=== PATIENT | male | born 1950 | race Caucasian/White ===

== ENCOUNTER 2021-02-23 15:01 | Inpatient (IN) | payer MEDICARE, BC ==
[~2021-02-23] VITALS: Ht 180.3 cm; Wt 96.0 kg
[~2021-02-23 15:01] MED LIST: ASPI-1053 PO; ATOR40TA PO; CARV3.12 PO; LOSA25TA96 PO; TICA90TA PO
[2021-02-23 15:58] LABS: BASOPHILS % (AUTO) 0.4 % (0-1); EOSINOPHILS # (AUTO) 0.1 X10'3 (0-0.9); EOSINOPHILS % (AUTO) 2.1 % (0-6); HEMATOCRIT 49.6 % (42.0-52.0); HEMOGLOBIN 16.5 g/dl (14.0-17.9); LYMPHOCYTES # (AUTO) 2.4 X10'3 (1.1-4.8); LYMPHOCYTES % (AUTO) 55.6 % (21-51); MEAN CORPUSCULAR HEMOGLOBIN 31.4 PG (27.0-31.0); MEAN CORPUSCULAR HGB CONC 33.3 g/dL (33.0-36.5); MEAN CORPUSCULAR VOLUME 94.3 FL (78-98); MEAN PLATELET VOLUME 9.1 FL (7.4-10.4); MONOCYTES # (AUTO) 0.6 X10'3 (0-0.9); NEUTROPHILS # (AUTO) 1.2 X10'3 (1.8-7.7); NEUTROPHILS % (AUTO) 28.9 % (42-75); PLATELET COUNT 177 X10'3 (140-440); RED BLOOD COUNT 5.26 X10'6 (4.70-6.10); RED CELL DISTRIBUTION WIDTH 14.1 % (11.5-14.5); WHITE BLOOD COUNT 4.3 X10'3 (4.5-11.0)
[2021-02-23 16:08] LABS: ALANINE AMINOTRANSFERASE 40 U/L (12-78); ALBUMIN 3.9 G/DL (3.4-5.0); ALBUMIN/GLOBULIN RATIO 1.1 (1.1-1.5); ALKALINE PHOSPHATASE 74 IU/L (46-116); ANION GAP 8 (8-16); ASPARTATE AMINO TRANSFERASE 31 U/L (10-37); BILIRUBIN,TOTAL 0.4 MG/DL (0.1-1.0); BLOOD UREA NITROGEN 13 MG/DL (7-18); BUN/CREATININE RATIO 11.9 (5.4-32.0); CALCIUM 9.1 MG/DL (8.5-10.1); CHLORIDE 104 MMOL/L (99-107); CREATININE 1.09 MG/DL (0.60-1.10); GLUCOSE 86 MG/DL (70-104); POTASSIUM 4.5 MMOL/L (3.5-5.1); SODIUM 140 MMOL/L (135-145); TOTAL CARBON DIOXIDE 27.8 MMOL/L (24-32); TOTAL PROTEIN 7.6 G/DL (6.4-8.2); eGFR 67 ML/MIN
[2021-02-23 18:27] LABS: PLATELET ESTIMATE NORMAL; TOTAL CELLS COUNTED 100
[2021-02-23 18:28] LABS: SMUDGE CELLS FEW
[2021-02-23] MEDS ORDERED: aspirin 81mg tab.chew PO ONE (19:10)
[2021-02-23] MEDS ORDERED: magnesium 2GM in 50ml NS 50 ML IV PRN (20:25)
[2021-02-23] MEDS ORDERED: PERFLUTREN PROTEIN-A MICROSPHR (Optison) 0.22 MG/ML 3ML VIAL IV PRN (20:25)
[2021-02-23] MEDS ORDERED: magnesium hydroxide 30ml (MOM) UD suspension PO PRN (20:25)
[2021-02-23] MEDS ORDERED: mag hydrox/Alum hydrox/simeth 30ml oral suspension PO PRN (20:25)
[2021-02-23] MEDS ORDERED: magnesium Cl slow-release 64mg tablet PO PRN (20:25)
[2021-02-23] MEDS ORDERED: potassium Cl 20 mEq SR tablet PO PRN ×2 (20:25)
[2021-02-23] MEDS ORDERED: magnesium 4gm in 100ml NS 100 ML IV PRN (20:25)
[2021-02-23] MEDS ORDERED: acetaminophen 325mg tablet PO PRN (20:25)
[2021-02-23] MEDS ORDERED: ondansetron/PF 4mg/2ml inj IV PRN (20:25)
[2021-02-23] MEDS ORDERED: normal saline 1000ml 1,000 ML IV SCH (20:25)
[2021-02-23] MEDS ORDERED: potassium CL 10mEq/100ml bag 100 ML IV PRN (20:25)
[2021-02-23] MEDS ORDERED: aminophylline 250mg/10ml inj. IV PRN (20:30)
[2021-02-23] MEDS ORDERED: regadenoson 0.4mg/5ml syringe IV ONE (20:30)
[2021-02-23] MEDS ORDERED: metoprolol tartrate 1mg/ml inj IV PRN (20:30)
[2021-02-23] MEDS ORDERED: nitroGLYCERIN 0.4mg SUBLingual tab SL PRN (20:30)
[2021-02-23] MEDS: heparin, porcine 5000 units/ml vial SQ SCH (22:28)
[2021-02-24 04:13] LABS: ALANINE AMINOTRANSFERASE 31 U/L (12-78); ALBUMIN 2.9 G/DL (3.4-5.0); ALBUMIN/GLOBULIN RATIO 0.9 (1.1-1.5); ALKALINE PHOSPHATASE 53 IU/L (46-116); ANION GAP 7 (8-16); ASPARTATE AMINO TRANSFERASE 26 U/L (10-37); BILIRUBIN,TOTAL 0.3 MG/DL (0.1-1.0); BLOOD UREA NITROGEN 14 MG/DL (7-18); BUN/CREATININE RATIO 16.1 (5.4-32.0); CALCIUM 7.1 MG/DL (8.5-10.1); CHLORIDE 111 MMOL/L (99-107); CREATININE 0.87 MG/DL (0.60-1.10); GLUCOSE 76 MG/DL (70-104); MAGNESIUM 1.7 MG/DL (1.5-2.4); POTASSIUM 3.5 MMOL/L (3.5-5.1); SODIUM 143 MMOL/L (135-145); TOTAL CARBON DIOXIDE 25.1 MMOL/L (24-32); TOTAL PROTEIN 6.1 G/DL (6.4-8.2); eGFR 87 ML/MIN
[2021-02-24] MEDS ORDERED: atorvastatin 20mg tablet PO SCH (08:00)
[2021-02-24] MEDS ORDERED: aspirin 81mg tab.chew PO SCH (08:00)
[2021-02-24] MEDS ORDERED: carVEDilol 3.125mg tablet PO SCH (08:00)
[2021-02-24] MEDS ORDERED: losartan 25mg tablet PO SCH (08:00)
[2021-02-24] MEDS ORDERED: K and/or MAG REPLACEMENT MC SCH (08:00)
[2021-02-24] MEDS ORDERED: docusate sod 100mg capsule PO SCH (08:00)
[2021-02-24] MEDS: heparin, porcine 5000 units/ml vial SQ SCH (08:15)
--- NOTE | 2021-02-24 08:39 | NUR ---
pt to nuc med for cardiac stress test on monitor with RN, charge nurse aware
[2021-02-24 08:49] LABS: BASOPHILS % (AUTO) 0.6 % (0-1); EOSINOPHILS # (AUTO) 0.1 X10'3 (0-0.9); EOSINOPHILS % (AUTO) 1.4 % (0-6); HEMATOCRIT 48.2 % (42.0-52.0); HEMOGLOBIN 16.3 g/dl (14.0-17.9); LYMPHOCYTES # (AUTO) 1.8 X10'3 (1.1-4.8); LYMPHOCYTES % (AUTO) 40.3 % (21-51); MEAN CORPUSCULAR HEMOGLOBIN 31.6 PG (27.0-31.0); MEAN CORPUSCULAR HGB CONC 33.7 g/dL (33.0-36.5); MEAN CORPUSCULAR VOLUME 93.6 FL (78-98); MEAN PLATELET VOLUME 8.8 FL (7.4-10.4); MONOCYTES # (AUTO) 0.6 X10'3 (0-0.9); MONOCYTES % (AUTO) 13.2 % (2-12); NEUTROPHILS % (AUTO) 44.5 % (42-75); PLATELET COUNT 158 X10'3 (140-440); RED BLOOD COUNT 5.16 X10'6 (4.70-6.10); WHITE BLOOD COUNT 4.6 X10'3 (4.5-11.0)
[2021-02-24 08:57] VITALS: BP 130/79
[2021-02-24 09:09] VITALS: BP 130/89
[2021-02-24 09:10] VITALS: BP 138/78
[2021-02-24 09:11] VITALS: BP 129/86
[2021-02-24 09:12] VITALS: BP 135/82
[2021-02-24 09:13] VITALS: BP 123/82
[2021-02-24 13:58] LABS: CHOL/HDL RATIO 3.5 (0.00-4.99); CHOLESTEROL 78 MG/DL (0-200); HDL CHOLESTEROL 22 MG/DL (35-60); LDL CHOLESTEROL 47 MG/DL (50-100); TRIGLYCERIDES 75 MG/DL (20-135)
== END 2021-02-24 16:53 | disposition home or self-care (01) | DRG 303 ==
LOC: ER 15:02 → ED HOLD 20:25
PROVIDERS: ADMIT Internal Medicine; ATTEND Internal Medicine
PROC: 4A02XM4 Measurement of Cardiac Total Activity, External Approach (ICD-10-PCS; principal; 2021-02-24)
PROC: 3E073KZ Introduction of Other Diagnostic Substance into Coronary Artery, Percutaneous Approach (ICD-10-PCS; 2021-02-24)
DX: I25.119 Atherosclerotic heart disease of native coronary artery with unspecified angina pectoris (principal); E78.5 Hyperlipidemia, unspecified; I10 Essential (primary) hypertension; E11.9 Type 2 diabetes mellitus without complications; M25.512 Pain in left shoulder; D72.821 Monocytosis (symptomatic); E78.00 Pure hypercholesterolemia, unspecified; I25.2 Old myocardial infarction; Z79.82 Long term (current) use of aspirin; Z95.5 Presence of coronary angioplasty implant and graft; Z79.899 Other long term (current) drug therapy; Z80.3 Family history of malignant neoplasm of breast; Z87.891 Personal history of nicotine dependence; Z90.49 Acquired absence of other specified parts of digestive tract
CPT/HCPCS: 36415; 71045; 78452; 80053; 80061; 83735; 83880; 84132; 84484; 85007; 85025; 93005; 93017; 93306; 99285; A9500; G0378; J1644; J7030

== ENCOUNTER 2021-03-31 14:15 | Day surgery (SDC) | payer MEDICARE, BC ==
[2021-03-29 11:02] LABS: BASOPHILS % (AUTO) 0.4 % (0-1); EOSINOPHILS # (AUTO) 0.3 X10'3 (0-0.9); EOSINOPHILS % (AUTO) 3.6 % (0-6); HEMATOCRIT 45.5 % (42.0-52.0); HEMOGLOBIN 15.2 g/dl (14.0-17.9); LYMPHOCYTES # (AUTO) 2.2 X10'3 (1.1-4.8); LYMPHOCYTES % (AUTO) 29.8 % (21-51); MEAN CORPUSCULAR HEMOGLOBIN 31.1 PG (27.0-31.0); MEAN CORPUSCULAR HGB CONC 33.3 g/dL (33.0-36.5); MEAN CORPUSCULAR VOLUME 93.2 FL (78-98); MEAN PLATELET VOLUME 8.9 FL (7.4-10.4); MONOCYTES # (AUTO) 0.7 X10'3 (0-0.9); MONOCYTES % (AUTO) 9.6 % (2-12); NEUTROPHILS # (AUTO) 4.1 X10'3 (1.8-7.7); NEUTROPHILS % (AUTO) 56.6 % (42-75); PLATELET COUNT 205 X10'3 (140-440); RED BLOOD COUNT 4.89 X10'6 (4.70-6.10); RED CELL DISTRIBUTION WIDTH 13.9 % (11.5-14.5); WHITE BLOOD COUNT 7.3 X10'3 (4.5-11.0)
[2021-03-29 11:15] LABS: APTT 30 SECONDS (22-32)
[2021-03-29 11:31] LABS: ALBUMIN 3.7 G/DL (3.4-5.0); ANION GAP 9 (8-16); BLOOD UREA NITROGEN 16 MG/DL (7-18); BUN/CREATININE RATIO 17.2 (5.4-32.0); CHLORIDE 106 MMOL/L (99-107); CREATININE 0.93 MG/DL (0.60-1.10); GLUCOSE 99 MG/DL (70-104); POTASSIUM 5.1 MMOL/L (3.5-5.1); SODIUM 142 MMOL/L (135-145); TOTAL CARBON DIOXIDE 26.6 MMOL/L (24-32); eGFR 80 ML/MIN
[2021-03-31] VITALS (9 sets, daily range): BP systolic 97–144; BP diastolic 76–109
[~2021-03-31] VITALS: Ht 180.3 cm; Wt 98.5 kg
[~2021-03-31 14:15] MED LIST changes: -TICA90TA PO
[2021-03-31] MEDS ORDERED: normal saline 1,000 ML IV SCH (14:35)
[2021-03-31] MEDS ORDERED: diphenhydrAMINE 25mg capsule PO PRN (14:35)
[2021-03-31] MEDS ORDERED: LORazepam 0.5 MG tablet PO PRN (14:35)
[2021-03-31] MEDS ORDERED: CARV3.1244 PO (15:00)
[2021-03-31] MEDS ORDERED: NITR0.4T48 (15:00)
[2021-03-31] MEDS ORDERED: ASPI-1071 PO (15:00)
[2021-03-31] MEDS ORDERED: midazolam 1 mg/ML 2ml injection ONE (17:32)
[2021-03-31] MEDS ORDERED: LIDOcaine 1% (10mg/ml)w/preservative injection 20ml MDV ONE (17:32)
[2021-03-31] MEDS ORDERED: iohexol 350MG/ML 100ml bottle IV ONE (17:32)
[2021-03-31] MEDS ORDERED: fentaNYL/PF 50MCG/1 ML 2ML syringe ONE (17:32)
[2021-03-31] MEDS ORDERED: verapamil 2.5 mg/ml inj IV ONE (17:33)
[2021-03-31] MEDS ORDERED: nitroGLYCERIN-Tridil 50MG/D5W 250 ML IV ONE (17:33)
[2021-03-31] MEDS ORDERED: heparin 1,000unit/ml 10ml vial 10 ML ONE (17:34)
== END 2021-03-31 21:00 | disposition home or self-care (01) ==
LOC: SSTAY O 14:15
PROVIDERS: ATTEND Internal Medicine Interventional Cardiology
DX: R07.89 Other chest pain (principal); I25.10 Atherosclerotic heart disease of native coronary artery without angina pectoris; I25.2 Old myocardial infarction; I10 Essential (primary) hypertension; E78.49 Other hyperlipidemia; Z79.82 Long term (current) use of aspirin; Z79.899 Other long term (current) drug therapy; Z95.5 Presence of coronary angioplasty implant and graft; Z87.891 Personal history of nicotine dependence
CPT/HCPCS: 36415; 76937; 80048; 85025; 85610; 85730; 93005; 93458; 99152; C1769; C1894; J1644; J2250; J3010; J3490; J7030; Q0163; Q9967; 99153; A4620; A5120